=== PATIENT | male | born 1970 | race Caucasian/White ===

== ENCOUNTER 2019-04-27 17:18 | Outpatient (RCR) | payer MEDICAID, SELFPAY ==
--- NOTE | 2019-06-25 17:36 | PCPTNOTE ---
06/25/19 - patient has not been to skilled PT in several weeks. as of this date, patient will be DC'd from skilled PT and all progress towards goals will be taken from the most recent evaluation/note. QIANA
== END 2019-07-26 23:59 | disposition home or self-care (01) ==
LOC: CHSPT 17:18
PROVIDERS: Visit Provider Psychiatry & Neurology Neurology
DX: Z53.8 Procedure and treatment not carried out for other reasons (principal)
CPT/HCPCS: 99199

== ENCOUNTER 2019-07-22 13:31 | Outpatient (RCR) | payer OTHER, SELFPAY ==
--- NOTE | 2019-07-22 18:09 | PTOPEVAL ---
Thank you for referring this patient to [facility] [place]. Please review, sign, date and return this plan of care [facility]. I agree with and certify that the following plan of care is medically necessary. Referring Physician Date Admitting Provider: Attending Provider: Glenn Gottlieb MD Referring Provider: *PT Outpatient Evaluation Start: 07/22/19 14:04 Freq: Status: Active Protocol: Document 07/22/19 18:00 GOSIA (Rec: 07/22/19 18:08 GOSIA [id number]) Evaluation Information Problem Diagnosis right BKA with new prothesis Onset 04/27/19 Subjective Information Pt. reports that he was just Query Text:As Reported By Patient/ provided his new prothesis Family last week. He has had some complication with fitting. He reports that he still notes weakness on the right and unsteadiness. 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 Prior Level of Function Activity Level (Last 3 Months) Hand Dominance Left Activity of Daily Living Ability Independent Indoor/Home Mobility Independent Community Mobility Independent Stairs Ability Independent Functional Cognition (Planning, Shopping Independent , Taking Medications) Cooking Yes Cleaning Yes Laundry Yes Shopping Yes Driving No Pain Assessment Self Report Self Report Pain Level 0 Pain Score Pain Score 0: Self Report Lower Extremity Muscle Strength Testing General Lower Extremity Strength Gross Lower Extremity Strength right hip flexion 4/5, right knee flexion 4/5, right knee extension 4/5, right hip abduction 3/5, right hip extension 4-/5 Balance Assessment Tinetti Balance Assessment Sitting Balance Steady, safe Ability to Arise Able, w/o using arms Attempts to Arise Arises on 1st attempt Immediate Standing Balance Steady w/o support Standing Balance Steady, wide stance Nudged Response Staggers, catches self Standing with Eyes Closed Unsteady Step Pattern Turning 360 Degrees Continuous steps Stability Turning 360 Degrees Steady Sitting Down Safe, steady Initiation of Gait Hesitancy, mu
== END 2019-07-23 09:35 | disposition home or self-care (01) ==
LOC: CHSPT 13:31
PROVIDERS: Visit Provider Internal Medicine
DX: Z89.511 Acquired absence of right leg below knee (principal)
CPT/HCPCS: 97110; 97112; 97161

== ENCOUNTER 2020-09-09 09:14 | Outpatient (CLI) | payer OTHER, SELFPAY ==
--- NOTE | ~2020-09-09 | XR_ITS ---
EXAMINATION: XR tibia fibula RT 2V DATE: 09/09/2020 10:14 INDICATION: Stump wound post right pltnk-jee-jrlg amputation several months prior. TECHNIQUE: AP and lateral views of the remaining right tibia and fibula were obtained. COMPARISON: None. FINDINGS: Postoperative change of a right vcohn-xbn-pxjv amputation. There is a smooth corticated margin with s ome secondary heterotopic ossification along the osteotomy margins. There is additional small ossific density in the soft tissues anterolateral to the tibial osteotomy margin which does not exhibit a we ll-defined cortical margin suggesting osteolysis which could be either aseptic resorption of devascul arized bone fragment or septic osteomyelitis of a previously corticated heterotopic ossicle. There is soft tissue swelling with increased density to the subcutaneous fat centered around a focal invagina tion on the skin surface which overlies the bone fragment. No soft tissue gas. Normal alignment and j oint space at the right knee with no right knee joint effusion. IMPRESSION: 1. Right rbegb-wwo-qvgc amputations was soft tissue swelling surrounding an invagination at the skin surface overlying a small noncorticated ossification suggesting osteolysis which could be either sept ic or aseptic. No findings to more specifically suggest osteomyelitis at the osteotomy margins of the distal tibia or fibula. Assessment would be aided with comparison to any prior outside postoperative imaging. Reviewed, dictated and finalized at location B. IMPRESSION: 1. Right woaoy-tkc-bnps amputations was soft tissue swelling surrounding an inv agination at the skin surface overlying a small noncorticated ossification sugg esting osteolysis which could be either septic or aseptic. No findings to more specifically suggest osteomyelitis at the osteotomy margins of the distal tibia or fibula. Assessment would be aided with comparison to any prior outside post operative imaging.
--- NOTE | ~2020-09-09 | US_ITS ---
EXAMINATION: US venous doppler [facility] DATE: 09/09/2020 10:05 INDICATION: Left lower limb swelling. TECHNIQUE: Grayscale ultrasound images without and with compression and Doppler ultrasound images of the left lower extremity veins were obtained. COMPARISON: None. FINDINGS: The visualized portions of left common femoral vein, profunda (deep) femoral vein, femoral vein, popl iteal vein, peroneal veins, posterior tibial veins, and greater saphenous vein outflow are patent. Rodriguez bcutaneous edema is noted. IMPRESSION: 1. No deep venous thrombosis. Reviewed, dictated and finalized at location A.
[2020-09-09 09:35] LABS: Basophils Absolute Auto 0.04 K/mm3 (0.00-0.10); Basophils Percent Auto 0.5 % (0.0-1.0); Eosinophils Percent Auto 3.9 % (1.0-6.0); Hematocrit 38.1 % (40.0-54.0); Hemoglobin 12.7 g/dL (14.0-18.0); Immature Granulocyte Absolute 0.03 K/mm3 (0.00-0.00); Immature Granulocyte Percent A 0.4 % (0.0-0.0); Lymphocytes Absolute Auto 1.72 K/mm3 (1.10-4.50); Lymphocytes Percent Auto 22.6 % (18.0-42.0); Mean Corpuscular HGB Conc 33.3 g/dL (32.0-36.0); Mean Corpuscular Hemoglobin 27.9 pg (27.0-31.0); Mean Corpuscular Volume 83.7 fL (78.0-102.0); Mean Platelet Volume 9.4 fl (8.7-11.0); Monocytes Absolute Auto 0.36 K/mm3 (0.10-0.90); Monocytes Percent Auto 4.7 % (2.0-11.0); Neutrophils Absolute Auto 5.2 K/mm3 (1.7-7.2); Neutrophils Percent Auto 67.9 % (50.0-70.0); Platelet Count Result 300 K/mm3 (150-420); Red Blood Count 4.55 M/mm3 (4.70-6.10); Red Cell Distribution Width 12.7 % (11.6-14.4); White Blood Count 7.6 K/mm3 (4.8-10.8)
[2020-09-09 09:51] LABS: Hemoglobin A1C 7.9 % (<5.7)
[2020-09-09 09:55] LABS: Alanine Aminotransferase 23 U/L (16-63); Albumin Level 3.4 g/dL (3.4-5.0); Alkaline Phosphatase 94 U/L (46-116); Anion Gap 8 mmol/L (8-16); Aspartate Amino Transferase 18 U/L (15-37); Bilirubin,Total 0.8 mg/dL (0.00-1.00); Blood Urea Nitrogen 19 mg/dL (7-18); CRP 0.7 mg/dL (0.0-0.9); Calcium 9.2 mg/dL (8.5-10.1); Carbon Dioxide 28 mmol/L (21-32); Chloride 100 mmol/L (98-108); Estimated Glomerular Filt Rate 57; Glucose 190 mg/dL (70-99); Osmolality Calculated 289 mOsm/kg (285-295); Potassium 3.7 mmol/L (3.5-5.1); Sodium 136 mmol/L (136-145); Total Protein 9.3 g/dL (6.4-8.2)
== END 2020-09-09 09:15 | disposition home or self-care (01) ==
PROVIDERS: PCP Internal Medicine; Visit Provider Internal Medicine
DX: M79.89 Other specified soft tissue disorders (principal); E10.9 Type 1 diabetes mellitus without complications; Z89.511 Acquired absence of right leg below knee
CPT/HCPCS: 36415; 73590; 80053; 83036; 85025; 86140; 87040; 93971

== ENCOUNTER 2020-09-12 07:43 | Outpatient (CLI) | payer OTHER, SELFPAY ==
--- NOTE | ~2020-09-12 | NM_ITS ---
EXAMINATION: NM bone 3 phase DATE: 09/12/2020 12:02 INDICATION: Pain along the stump of a right nfnvg-lqy-fcjz amputation and inflamed and painful left l eg with sore at the left foot. TECHNIQUE: 25.9 mCi Tc-99m HDP by intravenous route. Scintigrams of the bilateral lower legs were ob tained in angiographic, blood pool, and delayed phases. COMPARISON: Right tibia/fibular radiographs dated 09/09/2020 FINDINGS: Right lhitp-usa-dgxn amputation. There is delayed initial arrival of activity to the right knee and b uyqu-lkd-ggul stump on the initial angiographic images. This is likely due to physiologically decreas ed flow on the right resulting from the amputation and loss of more distal perfused tissue. There manjarrez s appear to be subtly asymmetrically increased soft tissue uptake on the angiographic images along th e lateral distal margin of the amputation. There is more prominent accumulation of activity on the im mediate blood pool images which persists on the 3 hour delayed images at the distal aspect of the sagar mp location corresponding to the osseous excrescence and soft tissue ossification at the distal tibia l osteotomy margin. Normal distribution of activity at the left lower leg, foot and ankle on the imme diate and delayed images. IMPRESSION: 1. Increased uptake in all 3 phases particularly at the immediate and delayed phases associated with the ossification previously noted at the distal right tibial osteotomy margin. 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 Differential would include osteomyelitis but could also be seen with ongoing asep tic heterotopic ossification with independent adjacent cellulitis. Would recommend correlation with a ny prior post amputation radiographs. Otherwise MRI could be considered to assess for abscess, sinus tract extending to the bone or abnormal marrow signal changes deep to the osteotomy margins which wou ld be more convincing for osteomyelitis. Reviewed, dictated and finalized at location A. IMPRESSION: 1. Increased uptake in all 3 phases particularly at the immediate and delayed phases associated with the ossification previously noted at the distal right ti bial osteotomy margin. Interpretation is complicated by the presence of heterot opic ossification which has developed since the relatively recent amputation an d which would still be expected to demonstrate increased activity on delayed im ages even when not infected. Differential would include osteomyelitis but could also be seen with ongoing aseptic heterotopic ossification with independent ad jacent cellulitis. Would recommend correlation with any prior post amputation r adiographs. Otherwise MRI could be considered to assess for abscess, sinus trac t extending to the bone or abnormal marrow signal changes deep to the osteotomy margins which would be more convincing for osteomyelitis.
== END 2020-09-12 07:44 | disposition home or self-care (01) ==
LOC: CHSIMG 07:46
PROVIDERS: PCP Internal Medicine; Visit Provider Internal Medicine
DX: N28.9 Disorder of kidney and ureter, unspecified (principal); M86.9 Osteomyelitis, unspecified; I73.9 Peripheral vascular disease, unspecified
CPT/HCPCS: 78315; A9503; A9561

== ENCOUNTER 2020-09-15 11:54 | Outpatient (CLI) | payer OTHER, SELFPAY ==
--- NOTE | ~2020-09-15 | US_ITS ---
EXAMINATION: US art doppler w press LE LT DATE: 09/15/2020 12:47 INDICATION: Peripheral arterial occlusive disease. Diabetes. TECHNIQUE: Segmental pressures and plethysmographic and Doppler waveforms of the brachial and lower e xtremity arteries were obtained. COMPARISON: None. FINDINGS: Right and left brachial artery pressures of 174 mm Hg and 179 mm Hg, respectively, are concordant (no rmal difference <= 30 mmHg). The left ankle-brachial index (SUKHJINDER) is at least 0.87 (normal >= 0.9-1) and potentially higher as pres sures were unable to be obtained at the left posterior tibial artery and more proximal arteries due t o inability to occlude the vessels. The left great toe-brachial index (TBI) is 0.60 (normal >= 0.6-0. 8). Arterial waveforms are triphasic with brisk systolic upstrokes throughout. The right ABIs and TBI's were unable to be obtained due to the right ocgit-vjl-zknz amputation. IMPRESSION: 1. Left SUKHJINDER and TBI measurements borderline for mild arterial occlusive disease. Reviewed, dictated and finalized at location A. IMPRESSION: 1. Left SUKHJINDER and TBI measurements borderline for mild arterial occlusive disease .
--- NOTE | ~2020-09-15 | US_ITS ---
US retroperitoneal comp 09/15/2020 12:46 Procedure: Realtime transabdominal ultrasound of the kidneys and bladder. Indication: Diabetic nephropathy. Comparison: No prior studies for comparison. Findings: Renal echotexture is normal bilaterally without hydronephrosis, contour deforming mass or r enal calculus. The right kidney measures 11.6 cm and left kidney measures 12.8 cm. Bladder not well d istended for evaluation. Impression: 1: Unremarkable renal ultrasound. No stones, masses or hydronephrosis. Reviewed, dictated and finalized at location A. Impression: 1: Unremarkable renal ultrasound. No stones, masses or hydronephrosis.
== END 2020-09-15 11:55 | disposition home or self-care (01) ==
LOC: CHSIMG 11:55
PROVIDERS: PCP Internal Medicine; Visit Provider Internal Medicine
DX: I73.9 Peripheral vascular disease, unspecified (principal); N28.9 Disorder of kidney and ureter, unspecified
CPT/HCPCS: 76770; 93922